=== PATIENT | female | born 1985 | race Caucasian/White ===

== ENCOUNTER 2017-07-02 06:34 | Emergency (ER) | payer SELFPAY ==
[2017-07-02 07:13] LABS: BILIRUBIN,URINE NEGATIVE (NEGATIVE)
[2017-07-02 07:24] LABS: HCG UR QUAL NEGATIVE; UA w/ MICROSCOPIC CHARGE YES; UR CULTURE IF IND INDICATED; WBC,URINE >25 /HPF (0-5)
--- NOTE | 2017-07-02 07:29 | ED Physician Documentation ---
PD HPI FEMALE - Stated complaint Stated Complaint: FEMALE - Chief complaint Chief Complaint: Abd Pain - History obtained from History obtained from: Patient - History of Present Illness Timing - onset: How many days ago (4) Timing - duration: Days (4) Timing - details: Gradual onset, Still present Associated symptoms: Vaginal pain, Vaginal discharge. No: Fever Contributing factors: No: Similar symptoms before: Has not had sx before Recently seen: Not recently seen - Additional information Additional information: 31 y/o female developed itching about 4 days ago and this has progressed to swelling and pain in the vagina with a yellow discharge. She is not concerned about STD. Review of Systems Constitutional: denies: Fever Respiratory: denies: Dyspnea, Cough GI: denies: Abdominal Swelling, Nausea, Vomiting, Constipation, Diarrhea : reports: Discharge. denies: Dysuria, Frequency Skin: denies: Rash Musculoskeletal: denies: Neck pain, Back pain Neurologic: denies: Generalized weakness, Focal weakness, Numbness PD PAST MEDICAL HISTORY - Past Medical History Past Medical History: No Cardiovascular: None Respiratory: None Neuro: None Endocrine/Autoimmune: None GI: None HOSIERY REPAIRER: None : None HEENT: None Psych: None Musculoskeletal: None Derm: None - Past Surgical History Past Surgical History: Yes General: Other /HOSIERY REPAIRER: section, Tubal ligation - Present Medications Home Medications: Ambulatory Orders Medication Instructions Recorded Confirmed Metronidazole 500 mg PO BID #14 tablet 07/02/17 - Allergies Allergies/Adverse Reactions: Allergies Allergy/AdvReac Type Severity Reaction Status Date / Time Sulfa (Sulfonamide AdvReac Rash Verified 07/02/17 06:45 Antibiotics) - Social History Does the pt smoke?: Yes Smoking Status: Current every day smoker Does the pt drink ETOH?: No Does the pt have substance abuse?: No - Immunizations Immunizations are current?: Yes - POLST Patient has POLST: No PD ED PE NORMAL - Vitals Vital signs reviewed: Yes (hypertensive ) - General General: No acute distress, Well developed/nourished - HEENT HEENT: Atraumatic, PERRL, EOMI - Respiratory Respiratory: No respiratory distress - Female Female : 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 ) - Back Back: No CVA TTP, No spinal TTP - Derm Derm: Normal color, Warm and dry, No rash - Extremities Extremities: No deformity, No edema - Neuro Neuro: No motor deficit, No sensory deficit - Psych Psych: Normal mood, Normal affect Results - Vitals Vitals: Vital Signs - 24 hr 07/02/17 07/02/17 06:42 07:21 Temperature 36.8 C 36.5 C Heart Rate 88 82 Respiratory 16 14 Rate Blood Pressure 132/90 H 135/84 H O2 Saturation 100 100 Oxygen O2 Source Room air - Labs Labs: Microbiology 07/02/17 07:20 Wet Prep - Final Genital - Vaginal 07/02/17 07:20 JENNY Preparation - Final Other - Vaginal Laboratory Tests 07/02/17 06:55 Urine Color YELLOW Urine Clarity CLOUDY Urine pH 6.0 Ur Specific [place] >=1.030 H Urine Protein 30 H Urine Glucose (UA) NEGATIVE Urine Ketones NEGATIVE Urine Occult Blood MODERATE H Urine Nitrite POSITIVE H Urine Bilirubin NEGATIVE Urine Urobilinogen 0.2 (NORMAL) Ur Leukocyte Esterase MODERATE H Urine RBC 11-25 H Urine WBC >25 H Urine WBC Clumps PRESENT Ur Squamous Epith Cells FEW Squamous Urine Bacteria Rare Ur Microscopic Review INDICATED Urine Culture Comments INDICATED Urine HCG, Qual NEGATIVE PD MEDICAL DECISION MAKING - ED course Complexity details: reviewed results, re-evaluated patient, considered differential, d/w patient ED course: 31 y/o female with vaginal itching and discharge has UTI on eval of the urine. She has what appears to be UTI and trich a well. Departure - Departure Disposition: 01 Home, Self Care Clinical Impression: Trichomonas vaginalis infection Condition: Stable Instructions: ED Vaginitis Trichomonas Follow-Up: [facility] [Provider Group] Prescriptions: Metronidazole 500 mg PO BID #14 tablet
[2017-07-02 08:23] VITALS: BP 122/70
--- NOTE | 2017-07-05 06:17 | ED Physician Documentation ---
ED Addendum - Addendum Addendum: 07/05/17 06:16 Chart accessed for culture review. Recommend continue metronidazole (for trichomoniasis), but add nitrofurantoin 100mg BID x 5 days (for UTI, cultured e.coli)
== END 2017-07-02 08:25 | disposition home or self-care (01) ==
LOC: ED 06:34
DX: A59.01 Trichomonal vulvovaginitis (principal); N30.00 Acute cystitis without hematuria
CPT/HCPCS: 81001; 81003; 81025; 87086; 87210; 87220; 99283